=== PATIENT | male | born 1945 | race American Indian/Alaskan Native ===

== ENCOUNTER 2017-05-27 10:19 | Emergency (ER) | payer MEDICARE ==
[2017-05-27] MEDS ORDERED: MARCAINE 0.5% INFILTRATI ONE (13:31)
--- NOTE | 2017-05-27 13:33 | Emergency Department Report ---
Abscess Boil HPI - HPI Chief Complaint: Skin/Abscess/Foreign Body Stated Complaint: ABCESS ON BACK Time Seen by Provider: 05/27/17 13:24 Duration: >1 Week (1 month) Location: Back Severity: Mild History: Yes Pain, Yes Purulent Drainage, No Fever, No Numbness, No Foreign Body , No Previous History, No Insect Bite HPI: This is a 71-year-old male nontoxic, well nourished in appearance, no acute signs of distress presents to the ED with c/o of abscess to the back 1 month. Patient stated that he was seen by his primary care doctor on 2017 and was referred to another doctor to get lanced but patient stated this morning he believes related "busted" and has been noticing purulent drainage. He is currently on Keflex. He stated that symptoms are swelling is slightly resolving. Patient denies any fever, chills, nausea, vomiting, headache, chest pain, short of breath, stiff neck, back pain, numbness or tingling. Patient denies any drug allergies. Past medical history includes hypertension. Home Medications: Previous Rx's Medication Instructions Recorded Last Taken Type Ibuprofen [Motrin] 600 mg PO Q8H PRN #30 tablet 05/27/17 Unknown Rx Allergies/Adverse Reactions: Allergies Allergy/AdvReac Type Severity Reaction Status Date / Time No Known Allergies Allergy Unverified 05/27/17 10:24 ED Review of Systems ROS: Stated complaint: ABCESS ON BACK Other details as noted in HPI Constitutional: denies: chills, fever Eyes: denies: eye pain, eye discharge, vision change ENT: denies: ear pain, throat pain Respiratory: denies: cough, shortness of breath, wheezing Cardiovascular: denies: chest pain, palpitations Endocrine: no symptoms reported Gastrointestinal: denies: abdominal pain, nausea, diarrhea Genitourinary: denies: urgency, dysuria Musculoskeletal: denies: back pain, joint swelling, arthralgia Skin: denies: rash, lesions Neurological: denies: headache, weakness, paresthesias Psychiatric: denies: anxiety, depression Hematological/Lymphatic: denies: easy bleeding, easy bruising ED Past Medical Hx - Past Medical History Hx Hypertension: Yes - Surgical History Additional Surgical History: Cardiac stent - Social History Smoking Status: Never Smoker Substance Use Type: None - Medications Home Medications: Home Medications Medication Instructions Recorded Confirmed Last Taken Type Ibuprofen [Motrin] 600 mg PO Q8H PRN #30 tablet 05/27/17 Unknown Rx ED Abscess Boil Physical Exam - Exam General: Vital signs noted. No distress. Alert and acting appropriately. Front/Back of Body, Lg (Color): 1 - 2 cm abscess Size: 2 cm Exam: Yes Tenderness, Yes Fluctuance, Yes Normal Neurologic Exam, Yes Normal Circulation, No Surrounding Cellulites/Erythema, No Lymphangitis, No Crepitation , No Heart Murmur I & D Note - I & D Note I & D Note: Under sterile field, I used Betadine to cleanse the area. I then used 0.5% Marcaine with 25-gauge 5/8 needle to inject area for anesthetic purposes. Total volume injected 3 mL. I then used an 11 blade to make a 1 cm incision. About 2 mL's of purulent drainage has been noted. I then used a hemostat to break the abscess formation. I then used sterile 0.9% normal saline flush to flush the wound with total volume of 40 mL used. I then put a 1 /4 iodoform packing to the incision. A sterile 4 x 4 with tape has been applied as dressing. Bleeding is under control. Patient tolerated the procedure well with no signs of distress noted. ED Course Vital Signs 05/27/17 10:25 Temperature 98.1 F Pulse Rate 73 Respiratory 16 Rate Blood Pressure 134/81 O2 Sat by Pulse 98 Oximetry - Reevaluation(s) Reevaluation #1: 05/27/17 13:31 Patient is speaking in full sentences with no signs of distress noted. Critical care attestation.: If time is entered above; I have spent that time in minutes in the direct care of this critically ill patient, excluding procedure time. ED Medical Decision Making - Medical Decision Making This is a 71-year-old male that presents with abscess. Patient is stable and was examined by me. This is incision and drainage and has been performed and patient tolerated well. A sterile dressing has been applied. Patient was educated on proper wound care. Patient is Motrin and was instructed to continue taking Keflex as prescribed by his primary care doctor. Patient was instructed to return in 2 days for packing removal. Patient was instructed to refer to Follow-up with a primary care doctor in 3-5 days or if symptoms worsen and continue return to emergency room as soon as possible. At time of discharge , the patient does not seem toxic or ill in appearance. No acute signs of distress noted. Patient agrees to discharge treatment plan of care. No further questions noted by the patient. ED Disposition Clinical Impression: Abscess, Encounter for incision and drainage procedure Disposition: TO HOME OR SELFCARE Is pt being admited?: No Does the pt Need Aspirin: No Condition: Stable Instructions: Abscess (ED), Abscess Incision and Drainage (ED), Ibuprofen (By mouth) Additional Instructions: Follow-up with a primary care doctor in 3-5 days or if symptoms worsen and continue return to emergency room as soon as possible. Continue taking Keflex as prescribed by your primary care doctor. Return in 2 days for packing removal and reassessment of the abscess. Prescriptions: Ibuprofen [Motrin] 600 mg PO Q8H PRN #30 tablet PRN Reason: Pain Referrals: PRIMARY MD MANJU [Primary Care Provider] - 3-5 Days GUANAKO LANG MD [Staff Physician] - 3-5 Days [facility] [Outside] - 3-5 Days [facility] [Outside] - 3-5 Days
[2017-05-27 14:18] VITALS: BP 142/86
== END 2017-05-27 14:16 | disposition home or self-care (01) ==
LOC: ED 10:19
DX: L02.212 Cutaneous abscess of back [any part, except buttock and flank] (principal); I10 Essential (primary) hypertension
CPT/HCPCS: 99282

== ENCOUNTER 2017-05-29 09:23 | Emergency (ER) | payer MEDICARE ==
[2017-05-29 10:07] VITALS: BP 141/83
--- NOTE | 2017-05-29 10:48 | Emergency Department Report ---
Abscess Boil HPI - HPI Chief Complaint: Skin/Abscess/Foreign Body Stated Complaint: PACKING REMOVAL Time Seen by Provider: 05/29/17 10:39 Duration: 2 Days Location: Back (mid upper back) Severity: Mild History: Yes Pain, No Fever, No Purulent Drainage, No Numbness, No Foreign Body , No Previous History, No Insect Bite HPI: This is a 71 y.o. male that presents for wound packing removed. Patient had I&D 2 days ago here and advised to return for packing removal. Patient states wound is still draining large amounts of yellow discharge. He followed up with primary care doctor Franc yesterday who changed dressing but left packing in place and advised him to f/u with a specialist for management of wound. He returned here for management because the specialist didn't call him back in time for packing removal. States the drainage still have a foul odor. Denies redness, swelling, numbness/tingling to area. Home Medications: Previous Rx's Medication Instructions Recorded Last Taken Type Ibuprofen [Motrin] 600 mg PO Q8H PRN #30 tablet 05/27/17 Unknown Rx Allergies/Adverse Reactions: Allergies Allergy/AdvReac Type Severity Reaction Status Date / Time No Known Allergies Allergy Unverified 05/27/17 10:24 ED Review of Systems ROS: Stated complaint: PACKING REMOVAL Other details as noted in HPI Constitutional: denies: chills, fever Respiratory: denies: cough, shortness of breath, wheezing Cardiovascular: denies: chest pain, palpitations Gastrointestinal: denies: abdominal pain, nausea, vomiting, diarrhea Skin: lesions (wound to mid upper back, packing and gauze dressing placed). denies: rash Neurological: denies: headache, weakness, paresthesias Psychiatric: denies: anxiety, depression ED Past Medical Hx - Past Medical History Hx Hypertension: Yes - Surgical History Past Surgical History?: Yes Additional Surgical History: Cardiac stent - Social History Smoking Status: Former Smoker Substance Use Type: None - Medications Home Medications: Home Medications Medication Instructions Recorded Confirmed Last Taken Type Ibuprofen [Motrin] 600 mg PO Q8H PRN #30 tablet 05/27/17 Unknown Rx ED Abscess Boil Physical Exam - Exam General: Vital signs noted. No distress. Alert and acting appropriately. Front/Back of Body, Lg (Color): 1 - 1 cm wound with 4x4 gauze dressing, moderate purulent drainage Size: 1 cm Exam: Yes Tenderness, Yes Normal Neurologic Exam, Yes Normal Circulation, No Fluctuance, No Surrounding Cellulites/Erythema, No Lymphangitis, No Crepitation , No Heart Murmur I & D Note - I & D Note I & D Note: Iodoform packing removed. Moderate amount of purulent drainage present. Cleaned wound with betadine. Repacked cavity with iodoform packing and applied 4x4 gauze, surgical tape dressing. ED Course Vital Signs 05/29/17 10:05 Temperature 98.4 F Pulse Rate 69 Respiratory 16 Rate Blood Pressure 141/83 O2 Sat by Pulse 97 Oximetry Critical care attestation.: If time is entered above; I have spent that time in minutes in the direct care of this critically ill patient, excluding procedure time. ED Medical Decision Making - Medical Decision Making This is a 71 y.o. male that presents for wound check and packing removal s/p I& D 2 days ago. Patient is stable and examined by me. No acute signs of distress noted. Vitals stable. Packing removed. There is still moderate amount of purulent drainage. Cleaned area with betadine and repacked cavity with iodofom packing and applied sterile dressing. Advised to complete bactrim antibiotics and return for wound assessment/packing removal in 24-48 hours. Educated patient on follow up plan and S/S of infection. Patient agrees to ED plan of care. Discharged home and return in 1-2 days for packing removal. ED Disposition Clinical Impression: Wound check, abscess, Abscess Disposition: - TO HOME OR SELFCARE Is pt being admited?: No Does the pt Need Aspirin: No Condition: Stable Instructions: Wound Infection (ED), Wound Healing and Your Diet (ED) Additional Instructions: Keep packing in place for 1-2 days. Return to ER or f/u with PCP to have packing removed and wound reassessed in 24- 48 hours. Complete full round of bactrim DS antibiotic as prescribed. Return to ER if foul smelling discharge, swelling, or severe pain to wound. Referrals: MOHINI ENG MD [Referring] - 3-5 Days [facility] [Provider Group] - 3-5 Days [facility] [Provider Group] - 3-5 Days Time of Disposition: 11:50 Print Language: ITALIAN
== END 2017-05-29 12:01 | disposition home or self-care (01) ==
LOC: ED 09:23
DX: Z48.01 Encounter for change or removal of surgical wound dressing (principal)

== ENCOUNTER 2017-05-31 09:01 | Emergency (ER) | payer MEDICARE ==
--- NOTE | 2017-05-31 10:05 | Emergency Department Report ---
Chief Complaint: Laceration/Recheck/Suture Stated Complaint: WOUND CHECK Time Seen by Provider: 05/31/17 09:30 - HPI History of Present Illness: 71-year-old male presents to the ED for wound check from an abscess incision and drainage, no fever he reports taking his medication as prescribed - ROS Review of Systems: Denies fevers/chills/nausea vomiting abdominal pain pain wound site. - Exam Vital Signs: Vital Signs 05/31/17 09:06 Temperature 97.9 F Pulse Rate 66 Respiratory 16 Rate Blood Pressure 148/83 O2 Sat by Pulse 98 Oximetry Physical Exam: GENERAL: Alert and oriented x3, no apparent distress, Normal Gait, atraumatic. HEAD: Head is normocephalic and a-traumatic. SKIN: Warm and dry, No lesions, No ulceration or induration present. Closed wound, nontender to palpation, healed MSE screening note: Focused history and physical exam performed. Due to findings the following was ordered: ED Medical Decision Making - Medical Decision Making 71-year-old male Presents for Wound Check. Abscess Completely Closed, Wound Looks Healed. Discussed wound will continue to heal patient is not limited doing more D iscussed follow-up with primary care. ED Disposition for MSE Clinical Impression: Wound check, abscess Disposition: DC-01 TO HOME OR SELFCARE Is pt being admited?: No Does the pt Need Aspirin: No Condition: Stable Instructions: Acute Wound Care (ED) Additional Instructions: Make sure to follow up with the primary care physician as discussed. Take all your medications as you've been prescribed. If you have any worsening symptoms or develop new symptoms please return to ED immediately. Forms: Work/School Release Form(ED) Time of Disposition: 10:02
[2017-05-31 10:21] VITALS: BP 146/93
== END 2017-05-31 10:21 | disposition home or self-care (01) ==
LOC: ED 09:01
DX: Z48.01 Encounter for change or removal of surgical wound dressing (principal)